=== PATIENT | female | born 1950 | race Caucasian/White ===

== ENCOUNTER → 2016-12-01 | Outpatient (CLI) | payer OTHER ==
--- NOTE | 2016-12-01 11:11 | REP ---
Clinical: Lower back pain. Technique: AP, lateral, bilateral oblique, and coned-down views of the lumbosacral spine. Findings: Chronic levoconvex scoliosis centered at L2-3 and moderate to advanced chronic multilevel degenerative disc osteophyte complexes are noted including endplate sclerosis, disc space narrowing, osteophytosis and hypertrophic facet changes. Findings are most pronounced at the level of chronic scoliosis as well as the L5-S1 level. No obvious acute fracture / compression injury or subluxation. Impression: Advanced multilevel degenerative changes. Signed by Nikita Snell MD 12/01/2016 11:03 A
--- NOTE | 2016-12-01 11:28 | REP ---
Clinical: Lower back pain. Technique: AP and lateral views of the sacrum and coccyx. Findings: The bilateral sacroiliac joints suggest age-related changes although mild degenerative changes along the left sacroiliac joint including increased periarticular sclerosis cannot be excluded. Alignment of the sacrum and coccyx appears normal. There is no evidence for acute or chronic fracture / subluxation. Impression: Relatively age-related changes. Signed by Nikita Snell MD 12/01/2016 11:20 A
--- NOTE | 2016-12-01 11:31 | REP ---
Clinical: Trauma. Technique: AP, lateral, bilateral oblique and sunrise views. Findings: The tibiofemoral joint space demonstrates subtle increase sclerosis and mild primarily medial joint space narrowing. [place] view demonstrates subtle increased subchondral sclerosis along the posterior patella with patellofemoral joint space narrowing as well as fraying along the anterior margin of the patella suggesting mild tendinopathy. Lateral and oblique views best demonstrate a small calcification along the posterolateral aspect at the level of the femoral condyles which may reflect sequelae of old injury. There is no effusion. No significant acute swelling. Impression: Mild to early moderate tricompartmental degenerative changes as described above. Signed by Nikita Snell MD 12/01/2016 11:23 A
[2016-12-01 19:59] LABS: BASO % 0.4 % (0.0-1.0); EOS # 0.2 K/mm3 (0.0-0.50); EOS % 3.2 % (0.0-3.0); LARGE UNSTAINED CELL # 0.2 K/mm3 (0.0-0.4); LARGE UNSTAINED CELL % 2.6 % (0.0-4.0); LYMPH # 2.4 K/mm3 (1.5-4.5); LYMPH % 29.9 % (24.0-44.0); MEAN CORPUSCULAR HEMOGLOBIN 29.5 pg (27.0-33.0); MEAN CORPUSCULAR HGB CONC 32.9 g/dl (32.0-36.5); MEAN CORPUSCULAR VOLUME 89.8 fl (80.0-96.0); MONO # 0.4 K/mm3 (0.0-0.8); MONO % 5.6 % (0.0-5.0); NEUTROPHILS # 4.3 K/mm3 (1.8-7.7); NEUTROPHILS % 58.3 % (36.0-66.0); PLATELET COUNT, AUTOMATED 258 k/mm3 (150-450); RED CELL DISTRIBUTION WIDTH 13.1 % (11.5-14.5); WHITE BLOOD COUNT 7.3 K/mm3 (4.0-10.0)
[2016-12-01 20:12] LABS: ALBUMIN 4.2 GM/DL (3.2-5.2); ALBUMIN/GLOBULIN RATIO 1.75 (1.00-1.93); ALKALINE PHOSPHATASE 75 U/L (45-117); ALT/SGPT 24 U/L (12-78); ANION GAP 9 MEQ/L (8-16); AST/SGOT 18 U/L (15-37); BILIRUBIN,TOTAL 0.7 MG/DL (0.2-1.0); BLOOD UREA NITROGEN 11 MG/DL (7-18); CALCIUM LEVEL 8.7 MG/DL (8.8-10.2); CARBON DIOXIDE LEVEL 31 MEQ/L (21-32); CHLORIDE LEVEL 104 MEQ/L (98-107); CHOLESTEROL LEVEL 158 MG/DL (<200); CREATININE FOR GFR 0.85 MG/DL (0.55-1.02); GLOMERULAR FILTRATION RATE > 60.0 (>45); GLUCOSE, FASTING 107 MG/DL (80-110); POTASSIUM SERUM 4.1 MEQ/L (3.5-5.1); SODIUM LEVEL 144 MEQ/L (136-145); TOTAL PROTEIN 6.6 GM/DL (6.4-8.2); TRIGLYCERIDES LEVEL 202 MG/DL (<150)
== END ==
LOC: M LRY 09:30
PROVIDERS: ATTEND Nurse Practitioner Family
DX: I10 Essential (primary) hypertension (principal); E11.9 Type 2 diabetes mellitus without complications; E78.4 Other hyperlipidemia; K21.0 Gastro-esophageal reflux disease with esophagitis; M54.5 Low back pain; M17.12 Unilateral primary osteoarthritis, left knee; M47.817 Spondylosis without myelopathy or radiculopathy, lumbosacral region

== ENCOUNTER → 2016-12-31 | Outpatient (CLI) | payer OTHER ==
--- NOTE | 2016-12-31 21:16 | ECGEPIP ---
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
== END ==
LOC: M EKG 11:27
PROVIDERS: ATTEND Nurse Practitioner Family
DX: I10 Essential (primary) hypertension (principal)

== ENCOUNTER 2017-03-20 10:00 | Emergency (ER) | payer OTHER ==
[~2017-03-20] VITALS: Ht 170.2 cm; Wt 92.7 kg
[2017-03-20] MEDS ORDERED: [UNRECOGNIZED DRUG - OTHER] PO (10:22)
[2017-03-20] MEDS ORDERED: IBUP200T45 PO (10:22)
[2017-03-20] MEDS ORDERED: NAPR500T2 PO (10:22)
[2017-03-20] MEDS ORDERED: ASPI1TAB PO (10:22)
[2017-03-20] MEDS ORDERED: METO12TA PO (10:22)
[2017-03-20] MEDS ORDERED: METACAP2 PO (10:22)
[2017-03-20] MEDS ORDERED: OMEP40CA2 PO (10:22)
[2017-03-20] MEDS ORDERED: EZET10TA PO (10:22)
[2017-03-20] MEDS ORDERED: BIMA01SOL OU (10:22)
[2017-03-20] MEDS ORDERED: LOVA20TA2 PO (10:22)
[2017-03-20] MEDS ORDERED: FLUTISP (10:22)
[2017-03-20] MEDS ORDERED: ASPIRIN 81 MG CHEW TABLET PO ONE (11:00)
[2017-03-20 11:23] LABS: BASO # 0.1 K/mm3 (0.0-0.2); BASO % 0.7 % (0.0-1.0); EOS # 0.2 K/mm3 (0.0-0.50); EOS % 2.9 % (0.0-3.0); LARGE UNSTAINED CELL # 0.2 K/mm3 (0.0-0.4); LARGE UNSTAINED CELL % 2.5 % (0.0-4.0); LYMPH # 1.8 K/mm3 (1.5-4.5); LYMPH % 21.9 % (24.0-44.0); MEAN CORPUSCULAR HEMOGLOBIN 29.5 pg (27.0-33.0); MEAN CORPUSCULAR HGB CONC 33.3 g/dl (32.0-36.5); MEAN CORPUSCULAR VOLUME 88.5 fl (80.0-96.0); MONO # 0.4 K/mm3 (0.0-0.8); MONO % 5.3 % (0.0-5.0); NEUTROPHILS # 5.4 K/mm3 (1.8-7.7); NEUTROPHILS % 66.7 % (36.0-66.0); PLATELET COUNT, AUTOMATED 250 k/mm3 (150-450); RED CELL DISTRIBUTION WIDTH 13.1 % (11.5-14.5); WHITE BLOOD COUNT 8.1 K/mm3 (4.0-10.0)
[2017-03-20 11:35] LABS: ALBUMIN 3.9 GM/DL (3.2-5.2); ALBUMIN/GLOBULIN RATIO 1.26 (1.00-1.93); ALKALINE PHOSPHATASE 61 U/L (45-117); ALT/SGPT 26 U/L (12-78); ANION GAP 9 MEQ/L (8-16); AST/SGOT 18 U/L (15-37); BILIRUBIN,DIRECT 0.2 MG/DL (0.0-0.2); BLOOD UREA NITROGEN 10 MG/DL (7-18); CALCIUM LEVEL 8.5 MG/DL (8.8-10.2); CARBON DIOXIDE LEVEL 30 MEQ/L (21-32); CHLORIDE LEVEL 103 MEQ/L (98-107); CREATININE FOR GFR 0.89 MG/DL (0.55-1.02); GLOMERULAR FILTRATION RATE > 60.0 (>45); GLUCOSE, FASTING 101 MG/DL (80-110); POTASSIUM SERUM 3.4 MEQ/L (3.5-5.1); SODIUM LEVEL 142 MEQ/L (136-145)
--- NOTE | 2017-03-20 12:18 | REP ---
PORTABLE CHEST: AP portable view of the chest is performed and compared to the prior study of 10/25/2012. There is mild cardiomegaly. There is no acute infiltrate or pulmonary edema. The mediastinal silhouette is unremarkable and unchanged. IMPRESSION: Mild cardiomegaly. No acute infiltrate. Signed by Marino Nance MD 03/20/2017 07:46 P
[2017-03-20 14:40] VITALS: BP 160/71
--- NOTE | 2017-03-20 16:30 | ECGEPIP ---
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
--- NOTE | 2017-03-30 16:36 | ECGEPIP ---
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
== END 2017-03-20 14:46 | disposition home or self-care (01) ==
LOC: M ED 11:08
DX: R07.89 Other chest pain (principal); E11.9 Type 2 diabetes mellitus without complications; I10 Essential (primary) hypertension; E78.5 Hyperlipidemia, unspecified; I51.7 Cardiomegaly; Z79.82 Long term (current) use of aspirin; Z79.899 Other long term (current) drug therapy

== ENCOUNTER → 2017-06-18 | Outpatient (CLI) | payer OTHER ==
[~2017-06-18] MED LIST: ASPI1TAB PO; BIMA01SOL OU; EZET10TA PO; FLUTISP; IBUP200T45 PO; LOVA20TA2 PO; METACAP2 PO; METO1TAB87 PO; NAPR500T3 PO; OMEP40CA2 PO; [UNRECOGNIZED DRUG - OTHER] PO
[2017-06-18 11:34] LABS: BASO % 0.4 % (0.0-1.0); EOS # 0.2 K/mm3 (0.0-0.50); EOS % 2.4 % (0.0-3.0); LARGE UNSTAINED CELL # 0.1 K/mm3 (0.0-0.4); LARGE UNSTAINED CELL % 1.7 % (0.0-4.0); LYMPH # 2.3 K/mm3 (1.5-4.5); LYMPH % 30.2 % (24.0-44.0); MEAN CORPUSCULAR HEMOGLOBIN 29.1 pg (27.0-33.0); MEAN CORPUSCULAR VOLUME 88.2 fl (80.0-96.0); MONO # 0.4 K/mm3 (0.0-0.8); MONO % 5.5 % (0.0-5.0); NEUTROPHILS # 4.4 K/mm3 (1.8-7.7); NEUTROPHILS % 59.7 % (36.0-66.0); PLATELET COUNT, AUTOMATED 252 k/mm3 (150-450); RED CELL DISTRIBUTION WIDTH 13.1 % (11.5-14.5); WHITE BLOOD COUNT 7.3 K/mm3 (4.0-10.0)
[2017-06-18 11:57] LABS: ALBUMIN 3.8 GM/DL (3.2-5.2); ALBUMIN/GLOBULIN RATIO 1.31 (1.00-1.93); ALKALINE PHOSPHATASE 57 U/L (45-117); ALT/SGPT 26 U/L (12-78); ANION GAP 7 MEQ/L (8-16); AST/SGOT 21 U/L (15-37); BILIRUBIN,TOTAL 0.9 MG/DL (0.2-1.0); BLOOD UREA NITROGEN 9 MG/DL (7-18); CALCIUM LEVEL 8.5 MG/DL (8.8-10.2); CARBON DIOXIDE LEVEL 32 MEQ/L (21-32); CHLORIDE LEVEL 104 MEQ/L (98-107); CHOLESTEROL LEVEL 157 MG/DL (<200); GLOMERULAR FILTRATION RATE > 60.0 (>45); GLUCOSE, FASTING 110 MG/DL (80-110); POTASSIUM SERUM 3.6 MEQ/L (3.5-5.1); SODIUM LEVEL 143 MEQ/L (136-145); TOTAL PROTEIN 6.7 GM/DL (6.4-8.2); TRIGLYCERIDES LEVEL 168 MG/DL (<150)
== END ==
LOC: M LRY 09:43
PROVIDERS: ATTEND Nurse Practitioner Family
DX: E78.4 Other hyperlipidemia (principal); I10 Essential (primary) hypertension; E11.9 Type 2 diabetes mellitus without complications; K21.0 Gastro-esophageal reflux disease with esophagitis